=== PATIENT | male | born 1995 | race Two or more races ===

== ENCOUNTER 2023-10-05 19:19 | Emergency (ER) | payer OTHER ==
[~2023-10-05] VITALS: Ht 182.9 cm; Wt 68.0 kg
[2023-10-05] MEDS ORDERED: CYCLOBENZAPRINE10 MG PO (20:26)
[2023-10-05] MEDS ORDERED: DICLOFENAC POTA50 MG PO (20:26)
== END 2023-10-05 20:43 | disposition home or self-care (01) ==
LOC: ER 19:19
DX: S39.012A Strain of muscle, fascia and tendon of lower back, initial encounter (principal)